=== PATIENT | male | born 1970 | race Caucasian/White ===

== ENCOUNTER → 2016-11-30 | Outpatient (CLI) | payer BC ==
[~2016-11-30] MED LIST: GADOBUTROL 10 ML VIAL IVP ONE
== END ==
LOC: FIMAGING 13:46
PROVIDERS: ATTEND Psychiatry & Neurology Neurology
DX: R53.1 Weakness (principal); M48.02 Spinal stenosis, cervical region; M50.31 Other cervical disc degeneration, high cervical region
CPT/HCPCS: A9585